=== PATIENT | female | born 1990 | race Hispanic/Latino ===

== ENCOUNTER 2017-12-26 18:12 | Emergency (ER) | payer OTHER, SELFPAY ==
[2017-12-26] MEDS ORDERED: NA CHLORIDE 0.9% 1,000 ML ONE (19:06)
[2017-12-26] MEDS ORDERED: ONDANSETRON 4 MG/2 ML VIAL ONE (19:06)
[2017-12-26 19:09] LABS: Basophils % 0.4 % (0-1.3); Eosinophils % 0.5 % (0-4.4); Hematocrit 33.6 % (36.0-45.0); Lymphocytes % 26.9 % (15.3-44.8); MCH 29.1 pg (27.0-35.0); MCV 85.9 fL (80-100); MPV 8.4 fL (7.6-11.3); Monocytes % 8.9 % (3.3-12.3); RBC Red Blood Cell Count 3.92 M/uL (3.86-4.86)
[2017-12-26 19:22] LABS: Urine Blood 2+ (NEG); Urine Glucose NEGATIVE (NEG); Urine Protein 1+ (NEG); Urine Specific Gravity 1.025 (1.005-1.030)
[2017-12-26 19:28] LABS: ALT/SGPT 17 U/L (12-78); AST/SGOT 13 U/L (15-37); Alkaline Phosphatase 61 U/L (45-117); BUN Blood Urea Nitrogen 12 mg/dL (7-18); Bicarbonate 26 mmol/L (21-32); Bilirubin Total 0.4 mg/dL (0.2-1.0); Glucose Level 84 mg/dL (74-106); Potassium 3.2 mmol/L (3.5-5.1); Protein, Total 7.7 g/dL (6.4-8.2); Sodium Level 142 mmol/L (136-145)
--- NOTE | 2017-12-26 19:46 | ER ---
Nurse's Notes [facility] Name: Joanne Knight Age: 27 yrs Sex: Female : 1990 Arrival Date: 12/26/2017 Time: 18:16 Bed 24 Private MD: None, None Diagnosis: Diarrhea, unspecified;Nausea and vomiting;Viral gastroenteritis Presentation: 12/26 18:19 Presenting complaint: Patient states: N/V/D since today at 0400. Pt c/o lower back pain aa5 since today. Transition of care: patient was not received from another setting of care. Onset of symptoms was December 26, 2017. Risk Assessment: Do you want to hurt yourself or someone else? Patient reports no desire to harm self or others. Initial Sepsis Screen: Does the patient meet any 2 criteria? No. Patient's initial sepsis screen is negative. Does the patient have a suspected source of infection? No. Patient's initial sepsis screen is negative. Care prior to arrival: None. 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 - Social history:: Smoking status: Patient/guardian denies using tobacco. - Ebola Screening: : No symptoms or risks identified at this time. Screenin:37 Abuse screen: Denies threats or abuse. Nutritional screening: No deficits noted. tl3 Tuberculosis screening: No symptoms or risk factors identified. Fall Risk None identified. Assessment: 18:37 General: Appears in no apparent distress. comfortable, well groomed, well developed, tl3 well nourished, Behavior is calm, cooperative, appropriate for age. Pain: Complains of pain in abdomen. Neuro: Level of Consciousness is awake, alert, obeys commands, Oriented to person, place, time, situation, Appropriate for age. Cardiovascular: Heart tones S1 S2 present Patient's skin is warm and dry. Respiratory: Airway is patent Respiratory effort is even, unlabored, Respiratory pattern is regular, symmetrical, Breath sounds are clear bilaterally. GI: Reports diarrhea, nausea. : Urine is clear, Reports vaginal bleeding that is moderate flow, on cycle. EENT: No signs and/or symptoms were reported regarding the EENT system. Derm: No signs and/or symptoms reported regarding the dermatologic system. Musculoskeletal: No signs and/or symptoms reported regarding the musculoskeletal system. 20:31 Reassessment: Patient appears in no apparent distress at this time. No changes from tl3 previously documented assessment. Patient and/or family updated on plan of care and expected duration. Pain level reassessed. Patient is alert, oriented x 3, equal unlabored respirations, skin warm/dry/pink. Vital Signs: 18:21 BP 142 / 99; Pulse 66; Resp 16 S; Temp 98.0(TE); Pulse Ox 100% on R/A; Weight 95.71 kg aa5 (R); Height 5 ft. 4 in. (162.56 cm) (R); Pain 9/10; 20:31 BP 120 / 98; Pulse 66; Resp 18; Pulse Ox 99% ; tl3 18:21 Body Mass Index 36.22 (95.71 kg, 162.56 cm) aa5 ED Course: 18:16 Patient arrived in ED. mr 18:16 None, None is Private Physician. mr 18:20 Triage completed. aa5 18:20 Arm band placed on. aa5 18:33 Ward Brown NP is PHCP. pm1 18:33 Boston Salcido MD is Attending Physician. pm1 18:36 Ronda Sidhu, SANTOS is Primary Nurse. tl3 18:37 Patient has correct armband on for positive identification. Bed in low position. Call tl3 light in reach. Side rails up X 1. Pulse ox on. NIBP on. 18:37 No provider procedures requiring assistance completed. Initial lab(s) drawn, by id, tl3 sent to lab. Urine collected: clean catch specimen, clear. Inserted saline lock: 20 gauge in right forearm, using aseptic technique. Blood collected. 20:31 IV discontinued, intact, bleeding controlled, No redness/swelling at site. Pressure tl3 dressing applied. Administered Medications: 19:09 Drug: NS 0.9% 1000 ml Route: IV; Rate: 1000 ml; Site: right forearm; Delivery: Primary tl3 tubing; 20:34 Follow up: IV Status: Completed infusion; IV Intake: 1000ml tl3 19:09 Drug: Zofran 4 mg Route: IVP; Infused Over: 2 mins; Site: right forearm; tl3 20:34 Follow up: Response: No adverse reaction tl3 20:04 Drug: Phenergan 12.5 mg Route: IVP; Site: right antecubital; mg2 20:33 Follow up: Response: No adverse reaction tl3 20:05 Drug: Potassium Chloride 40 mEq Route: PO; mg2 20:34 Follow up: Response: No adverse reaction tl3 20:05 Drug: TORadol 30 mg Route: IVP; Site: right antecubital; mg2 20:34 Follow up: Response: No adverse reaction tl3 Intake: 20:34 IV: 1000ml; Total: 1000ml. tl3 Outcome: 19:45 Discharge ordered by MD. pm1 20:31 Discharged to home ambulatory. tl3 20:31 Condition: stable 20:31 Discharge instructions given to patient, Instructed on discharge instructions, follow up and referral plans. medication usage, Demonstrated understanding of instructions, follow-up care, medications, Prescriptions given X 3. 20:36 Patient left the ED. tl3 Signatures: Sandra Guerrero Audri, RN RN aa5 Ward Brown, DATA OPERATIONS LEADER DATA OPERATIONS LEADER pm1 Ronda Sidhu RN RN tl3 Jc Blake RN RN mg2
--- NOTE | 2017-12-26 19:46 | EDPHYS ---
Physician Documentation [facility] Name: Joanne Knight Age: 27 yrs Sex: Female : 1990 Arrival Date: 12/26/2017 Time: 18:16 Bed 24 Private MD: None, None ED Physician Boston Salcido HPI: 12/26 19:00 This 27 yrs old Female presents to ER via Ambulatory with complaints of Back pm1 Pain, Vomiting, Diarrhea. 19:00 The patient presents to the emergency department with nausea, vomiting, 4 times since pm1 the onset of symptoms, diarrhea, 4 times since the onset of symptoms. Onset: The symptoms/episode began/occurred today. Possible causes: unknown. The symptoms are aggravated by nothing. The symptoms are alleviated by nothing. Associated signs and symptoms: Pertinent positives: Back pain, Pertinent negatives: abdominal pain, dysuria, fever. The patient has not recently seen a physician. 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 - Social history:: Smoking status: Patient/guardian denies using tobacco. - Ebola Screening: : No symptoms or risks identified at this time. ROS: 19:00 Constitutional: Negative for fever, chills, and weight loss, Eyes: Negative for injury, pm1 pain, redness, and discharge, ENT: Negative for injury, pain, and discharge, Neck: Negative for injury, pain, and swelling, Cardiovascular: Negative for chest pain, palpitations, and edema, Respiratory: Negative for shortness of breath, cough, wheezing, and pleuritic chest pain. 19:00 : Negative for injury, bleeding, discharge, and swelling, MS/Extremity: Negative for injury and deformity, Skin: Negative for injury, rash, and discoloration, Neuro: Negative for headache, weakness, numbness, tingling, and seizure. 19:00 Abdomen/GI: Positive for nausea, vomiting, and diarrhea, Negative for abdominal pain. 19:00 Back: Positive for of the low back area. Exam: 19:00 Constitutional: This is a well developed, well nourished patient who is awake, alert, pm1 and in no acute distress. Head/Face: Normocephalic, atraumatic. Eyes: Pupils equal round and reactive to light, extra-ocular motions intact. Lids and lashes normal. Conjunctiva and sclera are non-icteric and not injected. Cornea within normal limits. Periorbital areas with no swelling, redness, or edema. ENT: Nares patent. No nasal discharge, no septal abnormalities noted. Tympanic membranes are normal and external auditory canals are clear. Oropharynx with no redness, swelling, or masses, exudates, or evidence of obstruction, uvula midline. Mucous membranes moist. Neck: Trachea midline, no thyromegaly or masses palpated, and no cervical lymphadenopathy. Supple, full range of motion without nuchal rigidity, or vertebral point tenderness. No Meningismus. Chest/axilla: Normal chest wall appearance and motion. Nontender with no deformity. No lesions are appreciated. Cardiovascular: Regular rate and rhythm with a normal S1 and S2. No gallops, murmurs, or rubs. Normal PMI, no JVD. No pulse deficits. Respiratory: Lungs have equal breath sounds bilaterally, clear to auscultation and percussion. No rales, rhonchi or wheezes noted. No increased work of breathing, no retractions or nasal flaring. Abdomen/GI: Soft, non-tender, with normal bowel sounds. No distension or tympany. No guarding or rebound. No evidence of tenderness throughout. 19:00 Skin: Warm, dry with normal turgor. Normal color with no rashes, no lesions, and no evidence of cellulitis. MS/ Extremity: Pulses equal, no cyanosis. Neurovascular intact. Full, normal range of motion. 19:00 Back: pain, is absent, ROM is normal, normal spinal alignment noted, CVA tenderness, is absent, muscle spasm, is not present. 19:00 Neuro: Orientation: is normal, Motor: is normal, moves all fours, Gait: is steady, at a normal pace, without difficulty. Vital Signs: 18:21 BP 142 / 99; Pulse 66; Resp 16 S; Temp 98.0(TE); Pulse Ox 100% on R/A; Weight 95.71 kg aa5 (R); Height 5 ft. 4 in. (162.56 cm) (R); Pain 9/10; 20:31 BP 120 / 98; Pulse 66; Resp 18; Pulse Ox 99% ; tl3 18:21 Body Mass Index 36.22 (95.71 kg, 162.56 cm) aa5 MDM: 18:33 Patient medically screened. pm1 19:42 Data reviewed: vital signs. Data interpreted: Pulse oximetry: on room air is 100 %. pm1 Interpretation: normal. Counseling: I had a detailed discussion with the patient and/or guardian regarding: the historical points, exam findings, and any diagnostic results supporting the discharge/admit diagnosis, lab results, the need for outpatient follow up, to return to the emergency department if symptoms worsen or persist or if there are any questions or concerns that arise at home. 12/26 18:38 Order name: CBC with Diff; Complete Time: 19:14 pm1 12/26 18:38 Order name: CMP; Complete Time: 19:36 pm1 12/26 19:01 Order name: Urine Dipstick--Ancillary (enter results); Complete Time: 19:36 2 12/26 19:01 Order name: Urine --Ancillary (enter results); Complete Time: 19:36 2 12/26 18:38 Order name: Urine Test (obtain specimen); Complete Time: 19:00 pm1 12/26 18:38 Order name: IV Saline Lock; Complete Time: 19:00 pm1 12/26 18:38 Order name: Labs collected and sent; Complete Time: 19:00 pm1 12/26 18:38 Order name: Urine Dipstick-Ancillary (obtain specimen); Complete Time: 19:00 pm1 Administered Medications: 19:09 Drug: NS 0.9% 1000 ml Route: IV; Rate: 1000 ml; Site: right forearm; Delivery: Primary tl3 tubing; 20:34 Follow up: IV Status: Completed infusion; IV Intake: 1000ml tl3 19:09 Drug: Zofran 4 mg Route: IVP; Infused Over: 2 mins; Site: right forearm; tl3 20:34 Follow up: Response: No adverse reaction tl3 20:04 Drug: Phenergan 12.5 mg Route: IVP; Site: right antecubital; mg2 20:33 Follow up: Response: No adverse reaction tl3 20:05 Drug: Potassium Chloride 40 mEq Route: PO; mg2 20:34 Follow up: Response: No adverse reaction tl3 20:05 Drug: TORadol 30 mg Route: IVP; Site: right antecubital; mg2 20:34 Follow up: Response: No adverse reaction tl3 Disposition: 12/26/17 19:45 Discharged to Home. Impression: Viral gastroenteritis , Diarrhea, unspecified, Nausea and vomiting. - Condition is Stable. - Discharge Instructions: Food Choices to Help Relieve Diarrhea, Adult, Nausea and Vomiting, Adult, Viral Gastroenteritis, Adult. - Prescriptions for Bentyl 20 mg Oral Tablet - take 1 tablet by ORAL route every 6 hours As needed; 20 tablet. Zofran 4 mg Oral Tablet - take 1 tablet by ORAL route every 12 hours As needed; 20 tablet. promethazine 25 mg Oral Tablet - take 1 tablet by ORAL route every 6 hours As needed; 20 tablet. - Medication Reconciliation Form, Thank You Letter, Antibiotic Education form. - Follow up: Emergency Department; When: As needed; Reason: Worsening of condition. Follow up: Private Physician; When: 2 - 3 days; Reason: Recheck today's complaints, Continuance of care, Re-evaluation by your physician. - Problem is new. - Symptoms have improved. Addendum: 12/29/2017 07:36 Co-signature as Attending Physician, Boston Salcido MD. r n Signatures: Dispatcher [employer] EDBoston Smith MD MD rn Calderon, Audri RN RN aa5 Ward Brown, JACKET PREPARER JACKET PREPARER pm1 Ronda Sidhu RN RN tl3 Jc Blake RN RN mg2 Corrections: (The following items were deleted from the chart) 12/26 19:45 19:45 12/26/2017 19:45 Discharged to Home. Impression: Diarrhea, unspecified; Nausea pm1 and vomiting. Condition is Stable. Forms are Medication Reconciliation Form, Thank You Letter, Antibiotic Education, Prescription Opioid Use. Follow up: Emergency Department; When: As needed; Reason: Worsening of condition. Follow up: Private Physician; When: 2 - 3 days; Reason: Recheck today's complaints, Continuance of care, Re-evaluation by your physician. Problem is new. Symptoms have improved. pm1 20:36 19:45 12/26/2017 19:45 Discharged to Home. Impression: Viral gastroenteritis Diarrhea, tl3 unspecified; Nausea and vomiting. Condition is Stable. Forms are Medication Reconciliation Form, Thank You Letter, Antibiotic Education, Prescription Opioid Use. Follow up: Emergency Department; When: As needed; Reason: Worsening of condition. Follow up: Private Physician; When: 2 - 3 days; Reason: Recheck today's complaints, Continuance of care, Re-evaluation by your physician. Problem is new. Symptoms have improved. pm1
[2017-12-26] MEDS ORDERED: POTASSIUM CL SA 10 MEQ TAB PO ONE (20:01)
[2017-12-26] MEDS ORDERED: PROMETHAZINE 25 MG/ML VIAL ONE (20:01)
[2017-12-26] MEDS ORDERED: KETOROLAC 30 MG/ML INJ ONE (20:02)
[2017-12-26] MEDS ORDERED: NA CHLORIDE 0.9% 100 ML IV ONE (20:02)
[2017-12-26 20:40] VITALS: TEMP 98
[2017-12-26 20:42] VITALS: BP 120/98; O2SAT 99
== END 2017-12-26 20:36 | disposition home or self-care (01) ==
LOC: ER 18:12
DX: A08.4 Viral intestinal infection, unspecified (principal)
CPT/HCPCS: 36415; 80053; 81003; 81025; 85025; 99284; J2405; J2550; J7030

== ENCOUNTER 2018-01-08 16:26 | Emergency (ER) | payer OTHER ==
[2018-01-08] MEDS ORDERED: HYDROCODONE/APAP 10/325 TAB ONE (17:03)
[2018-01-08 17:20] LABS: Urine Blood 1+ (NEG); Urine Glucose NEGATIVE (NEG); Urine Protein NEGATIVE (NEG); Urine Specific Gravity >1.030 (1.005-1.030)
--- NOTE | 2018-01-08 17:20 | RAD REPORT ---
EXAM DESCRIPTION: RAD - Knee Right 3 View - 01/08/2018 5:14 pm CLINICAL HISTORY: Right knee pain status post fall FINDINGS: No fracture or dislocation is seen. A moderate joint effusion is present
--- NOTE | 2018-01-08 18:03 | EDPHYS ---
Physician Documentation [facility] Name: Joanne Knight Age: 27 yrs Sex: Female : 1990 Arrival Date: 01/08/2018 Time: 16:29 Bed 14 Private MD: None, None ED Physician Dick Matthews HPI: 01/08 17:00 This 27 yrs old Female presents to ER via Wheelchair with complaints of Fall pm1 Injury, Knee Injury. 17:00 Details of fall: The patient fell from an upright position, while standing. Onset: The pm1 symptoms/episode began/occurred just prior to arrival. Associated injuries: The patient sustained right knee. Severity of symptoms: in the emergency department the symptoms have improved. Patient slipped in the kitchen, landed on her left side and her right knee cap moved laterally. Patient reduced it and presents to the ER with right knee pain and swelling. No head injury, headache, or neck pain. No LOC. 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 - Social history:: Smoking status: Patient/guardian denies using tobacco. - Ebola Screening: : Patient negative for fever greater than or equal to 101.5 degrees Fahrenheit, and additional compatible Ebola Virus Disease symptoms Patient denies exposure to infectious person Patient denies travel to an Ebola-affected area in the 21 days before illness onset No symptoms or risks identified at this time. ROS: 17:00 Constitutional: Negative for fever, chills, and weight loss, Eyes: Negative for injury, pm1 pain, redness, and discharge, ENT: Negative for injury, pain, and discharge, Neck: Negative for injury, pain, and swelling, Cardiovascular: Negative for chest pain, palpitations, and edema, Respiratory: Negative for shortness of breath, cough, wheezing, and pleuritic chest pain, Abdomen/GI: Negative for abdominal pain, nausea, vomiting, diarrhea, and constipation, Back: Negative for injury and pain, : Negative for injury, bleeding, discharge, and swelling. 17:00 Skin: Negative for injury, rash, and discoloration, Neuro: Negative for headache, weakness, numbness, tingling, and seizure. 17:00 MS/extremity: Positive for pain, of the right knee. Exam: 17:00 Constitutional: This is a well developed, well nourished patient who is awake, alert, pm1 and in no acute distress. Head/Face: Normocephalic, atraumatic. Eyes: Pupils equal round and reactive to light, extra-ocular motions intact. Lids and lashes normal. Conjunctiva and sclera are non-icteric and not injected. Cornea within normal limits. Periorbital areas with no swelling, redness, or edema. ENT: Nares patent. No nasal discharge, no septal abnormalities noted. Tympanic membranes are normal and external auditory canals are clear. Oropharynx with no redness, swelling, or masses, exudates, or evidence of obstruction, uvula midline. Mucous membranes moist. Neck: Trachea midline, no thyromegaly or masses palpated, and no cervical lymphadenopathy. Supple, full range of motion without nuchal rigidity, or vertebral point tenderness. No Meningismus. Chest/axilla: Normal chest wall appearance and motion. Nontender with no deformity. No lesions are appreciated. Cardiovascular: Regular rate and rhythm with a normal S1 and S2. No gallops, murmurs, or rubs. No pulse deficits. Respiratory: Lungs have equal breath sounds bilaterally, clear to auscultation and percussion. No rales, rhonchi or wheezes noted. No increased work of breathing, no retractions or nasal flaring. Abdomen/GI: Soft, non-tender, with normal bowel sounds. No distension or tympany. No guarding or rebound. No evidence of tenderness throughout. Back: No spinal tenderness. No costovertebral tenderness. Full range of motion. Skin: Warm, dry with normal turgor. Normal color with no rashes, no lesions, and no evidence of cellulitis. 17:00 Musculoskeletal/extremity: Extremities: grossly normal except: noted in the right knee: pain, swelling, tenderness. 17:00 Neuro: Orientation: is normal, Motor: moves all fours. Vital Signs: 16:48 BP 136 / 101; Pulse 71; Resp 16; Temp 99.1(O); Pulse Ox 99% on R/A; Pain 9/10; em 18:17 BP 148 / 91; Pulse 67; Resp 18; Pulse Ox 99% on R/A; Pain 8/10; em MDM: 16:43 Patient medically screened. pm1 17:56 Data reviewed: vital signs. Data interpreted: Pulse oximetry: on room air is 99 %. pm1 Interpretation: normal. Counseling: I had a detailed discussion with the patient and/or guardian regarding: the historical points, exam findings, and any diagnostic results supporting the discharge/admit diagnosis, radiology results, the need for outpatient follow up, for definitive care, a orthopedic surgeon, to return to the emergency department if symptoms worsen or persist or if there are any questions or concerns that arise at home. 01/08 17:18 Order name: Urine Dipstick--Ancillary (enter results); Complete Time: 17:22 ag 01/08 17:18 Order name: Urine --Ancillary (enter results); Complete Time: 17:22 ag 01/08 16:48 Order name: Knee Right 3 View XRAY; Complete Time: 17:22 pm1 01/08 16:48 Order name: Knee Immobilizer; Complete Time: 17:49 pm1 01/08 16:48 Order name: Crutches; Complete Time: 17:49 pm1 01/08 16:48 Order name: Urine Dipstick-Ancillary (obtain specimen); Complete Time: 17:13 pm1 01/08 16:48 Order name: Urine Test (obtain specimen); Complete Time: 17:13 pm1 Administered Medications: 17:16 Drug: HYDROcodone-acetaminophen 10 mg-325 mg 1 tabs Route: PO; em 18:22 Follow up: Response: No adverse reaction; Pain is unchanged, physician notified em Disposition: 18:57 Co-signature as Attending Physician, Dick Matthews MD I agree with the assessment and kdr plan of care. Disposition: 01/08/18 18:02 Discharged to Home. Impression: Pain in right knee, Other subluxation and dislocation of patella - reduced by patient prior to arrival. - Condition is Stable. - Discharge Instructions: Crutch Use, Knee Immobilizer, Knee Sprain, Knee Pain. - Prescriptions for Tylenol- Codeine #3 300-30 mg Oral Tablet - take 2 tablets by ORAL route every 6 hours As needed; 20 tablet. - Work release form, Medication Reconciliation Form, Thank You Letter form. - Follow up: Emergency Department; When: As needed; Reason: Worsening of condition. Follow up: Kory De La Fuente MD; When: 2 - 3 days; Reason: Recheck today's complaints, Continuance of care, Re-evaluation by your physician. - Problem is new. - Symptoms have improved. Signatures: Dispatcher [employer] EDMS Dick Matthews MD MD [facility] Brandt Quevedo, LEAD SOFTWARE DEVELOPMENT ENGINEER LEAD SOFTWARE DEVELOPMENT ENGINEER em Ward Brown NP CASTING MACHINE SET UP OPERATOR pm1 Corrections: (The following items were deleted from the chart) 18:29 18:02 01/08/2018 18:02 Discharged to Home. Impression: Pain in right knee; Other em subluxation and dislocation of patella - reduced by patient prior to arrival. Condition is Stable. Forms are Medication Reconciliation Form, Thank You Letter, Antibiotic Education, Prescription Opioid Use. Follow up: Emergency Department; When: As needed; Reason: Worsening of condition. Follow up: Kory De La Fuente; When: 2 - 3 days; Reason: Recheck today's complaints, Continuance of care, Re-evaluation by your physician. Problem is new. Symptoms have improved. pm1
--- NOTE | 2018-01-08 18:03 | ER ---
Nurse's Notes [facility] Name: Joanne Knight Age: 27 yrs Sex: Female : 1990 Arrival Date: 01/08/2018 Time: 16:29 Bed 14 Private MD: None, None Diagnosis: Pain in right knee;Other subluxation and dislocation of patella-reduced by patient prior to arrival Presentation: 01/08 16:43 Presenting complaint: Patient states: slipped around 1330, felt pop and noticed knee em cap to the outside and pushed it back, has not taken anything for pain. Transition of care: patient was not received from another setting of care. Onset of symptoms was January 08, 2018. Risk Assessment: Do you want to hurt yourself or someone else? Patient reports no desire to harm self or others. Initial Sepsis Screen: Does the patient meet any 2 criteria? No. Patient's initial sepsis screen is negative. Does the patient have a suspected source of infection? No. Patient's initial sepsis screen is negative. Care prior to arrival: None. 16:43 Method Of Arrival: Wheelchair em 17:20 Acuity: MATT 4 iw Triage Assessment: 16:46 General: Appears in no apparent distress. uncomfortable, Behavior is calm, cooperative. em Pain: Complains of pain in right knee Pain currently is 9 out of 10 on a pain scale. 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 - Social history:: Smoking status: Patient/guardian denies using tobacco. - Ebola Screening: : Patient negative for fever greater than or equal to 101.5 degrees Fahrenheit, and additional compatible Ebola Virus Disease symptoms Patient denies exposure to infectious person Patient denies travel to an Ebola-affected area in the 21 days before illness onset No symptoms or risks identified at this time. Screenin:47 Abuse screen: Denies threats or abuse. Nutritional screening: No deficits noted. em Tuberculosis screening: No symptoms or risk factors identified. Fall Risk None identified. Assessment: 16:51 General: Appears in no apparent distress. uncomfortable, Behavior is calm, cooperative, em Reports slipped and dislocated knee cap and put it back in place. Pain: Complains of pain in right knee Pain currently is 9 out of 10 on a pain scale. Neuro: Level of Consciousness is awake, alert, obeys commands, Oriented to person, place, time, situation. Cardiovascular: Capillary refill < 3 seconds Patient's skin is warm and dry. Respiratory: Airway is patent Respiratory effort is even, unlabored, Respiratory pattern is regular, symmetrical. GI: Abdomen is round. : No signs and/or symptoms were reported regarding the genitourinary system. EENT: No signs and/or symptoms were reported regarding the EENT system. Derm: Skin is intact, Skin is pink, warm \T\ dry. Musculoskeletal: Circulation, motion, and sensation intact. Capillary refill < 3 seconds, Range of motion: limited in right knee Swelling absent. 17:49 Reassessment: Patient appears in no apparent distress at this time. Patient and/or em family updated on plan of care and expected duration. Pain level reassessed. Patient is alert, oriented x 3, equal unlabored respirations, skin warm/dry/pink. 18:28 Reassessment: Patient appears in no apparent distress at this time. Patient and/or em family updated on plan of care and expected duration. Pain level reassessed. Patient is alert, oriented x 3, equal unlabored respirations, skin warm/dry/pink. Vital Signs: 16:48 BP 136 / 101; Pulse 71; Resp 16; Temp 99.1(O); Pulse Ox 99% on R/A; Pain 9/10; em 18:17 BP 148 / 91; Pulse 67; Resp 18; Pulse Ox 99% on R/A; Pain 8/10; em ED Course: 16:29 Patient arrived in ED. mr 16:29 None, None is Private Physician. mr 16:42 Ward Brown NP is PHCP. pm1 16:42 Dick Matthews MD is Attending Physician. pm1 16:42 Brandt Quevedo LVN is Primary Nurse. em 16:47 Patient has correct armband on for positive identification. Bed in low position. Call em light in reach. 16:47 No provider procedures requiring assistance completed. Patient did not have IV access em during this emergency room visit. 16:51 Arm band placed on. em 17:13 Knee Right 3 View XRAY In Process Unspecified. EDMS 17:20 Triage completed. iw 17:57 Kory De La Fuente MD is Referral Physician. pm1 Administered Medications: 17:16 Drug: HYDROcodone-acetaminophen 10 mg-325 mg 1 tabs Route: PO; em 18:22 Follow up: Response: No adverse reaction; Pain is unchanged, physician notified em Outcome: 18:02 Discharge ordered by . pm1 18:28 Discharged to home with crutches. em 18:28 Condition: good 18:28 Discharge instructions given to patient, Instructed on discharge instructions, follow up and referral plans. no drinking with medication, no driving heavy equipment, medication usage, Demonstrated understanding of instructions, follow-up care, medications, crutch walking, Prescriptions given X 1. 18:29 Patient left the ED. em Signatures: Dispatcher [employer] EDMS Sandra GuerreroozBrandt, EMPLOYMENT CONSULTANT EMPLOYMENT CONSULTANT em Merna Carrillo, SANTOS RN iw Ward Brown, FRANCOIS PHLEBOTOMIST pm1
[2018-01-08 18:33] VITALS: TEMP 99.1; O2SAT 99
[2018-01-08 18:34] VITALS: BP 148/91
== END 2018-01-08 18:29 | disposition home or self-care (01) ==
LOC: ER 16:26
DX: S83.091A Other subluxation of right patella, initial encounter (principal); W01.0XXA Fall on same level from slipping, tripping and stumbling without subsequent striking against object, initial encounter; Y93.89 Activity, other specified; Y92.000 Kitchen of unspecified non-institutional (private) residence as the place of occurrence of the external cause
CPT/HCPCS: 81003; 81025; 99284

== ENCOUNTER 2018-09-22 17:11 | Emergency (ER) | payer OTHER, SELFPAY ==
[2018-09-22] MEDS ORDERED: predniSONE 20 MG TAB ONE (17:54)
[2018-09-22] MEDS ORDERED: FAMOTIDINE 20 MG TAB ONE (17:54)
[2018-09-22 19:01] LABS: Urine Blood 1+ (NEG); Urine Glucose NEGATIVE (NEG); Urine Protein NEGATIVE (NEG); Urine Specific Gravity 1.025 (1.005-1.030)
--- NOTE | 2018-09-22 19:35 | EDPHYS ---
Physician Documentation [facility] Name: Joanne Knight Age: 28 yrs Sex: Female : 1990 Arrival Date: 09/22/2018 Time: 17:15 Bed 24 Private MD: ED Physician Boston Salcido HPI: 09/22 17:39 This 28 yrs old Female presents to ER via Ambulatory with complaints of cp Allergic Reaction. 17:39 The patient presents with localized swelling, rash, that is diffuse. cp 17:39 Onset: The symptoms/episode began/occurred 1 hour(s) ago. cp 17:39 Associated signs and symptoms: Pertinent positives: itchy throat, Pertinent negatives: cp dysphagia, fever. 17:39 Possible causes: dust. At home the patient or guardian has treated the symptoms with cp Benadryl. Severity of symptoms: in the emergency department the symptoms are unchanged despite home interventions. 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 - Social history:: Smoking status: unknown. - Ebola Screening: : No symptoms or risks identified at this time. ROS: 17:43 Constitutional: Negative for body aches, chills, fever, poor PO intake. cp 17:43 Eyes: Negative for injury, pain, redness, and discharge. cp 17:43 ENT: Negative for drainage from ear(s), ear pain, sore throat, difficulty swallowing, difficulty handling secretions. 17:43 Cardiovascular: Negative for chest pain, palpitations. 17:43 Respiratory: Negative for shortness of breath, wheezing. 17:43 Abdomen/GI: Negative for abdominal pain, nausea, vomiting, and diarrhea. 17:43 Skin: Positive for rash, diffusely. 17:43 Neuro: Negative for altered mental status, headache. 17:43 All other systems are negative. Exam: 17:50 Constitutional: The patient appears in no acute distress, alert, awake, non-toxic, well cp developed, well nourished. 17:50 Head/face: Noted is swelling, that is mild, of the left infraorbital area. cp 17:50 Eyes: Pupils: equal, round, and reactive to light and accomodation, Extraocular movements: intact throughout, Conjunctiva: normal, no exudate, no injection, Sclera: no appreciated abnormality, Lids and lashes: appear normal, bilaterally. 17:50 ENT: External ear(s): are unremarkable, Ear canal(s): are normal, clear, TM's: bulging, is not appreciated, bilaterally, dullness, bilaterally, erythema, is not appreciated, bilaterally, Nose: is normal, Mouth: Lips: moist, Oral mucosa: pink and intact, moist, Posterior pharynx: Airway: no evidence of obstruction, patent, Tonsils: are normal in appearance, Uvula: midline, swelling, is not appreciated, erythema, is not appreciated, exudate, is not appreciated. 17:50 Neck: ROM/movement: is normal, is supple, without pain, no range of motions limitations, no meningismus, no nuchal rigidity. 17:50 Chest/axilla: Palpation: is normal, no crepitus, no tenderness. 17:50 Cardiovascular: Rate: normal, Rhythm: regular. 17:50 Respiratory: the patient does not display signs of respiratory distress, Respirations: normal, no use of accessory muscles, no retractions, no splinting, no tachypnea, labored breathing, is not present, Breath sounds: are clear throughout, no decreased breath sounds, no stridor, no wheezing. 17:50 Abdomen/GI: Inspection: abdomen appears normal, Palpation: abdomen is soft and non-tender, in all quadrants, rebound tenderness, is not appreciated, involuntary guarding, is not appreciated. 17:50 Back: pain, is absent, ROM is normal. 17:50 Skin: rash can be described as hives, and is diffusely located. cp Vital Signs: 17:17 BP 133 / 91; Pulse 55; Resp 18; Temp 98; Pulse Ox 100% ; Weight 99.79 kg; Height 5 ft. sv 4 in. (162.56 cm); Pain 0/10; 18:43 BP 119 / 89; Pulse 65; Resp 18; Pulse Ox 100% on R/A; Pain 0/10; mg2 19:40 BP 115 / 69; Pulse 60; Resp 18; Pulse Ox 100% on R/A; Pain 0/10; mg2 17:17 Body Mass Index 37.76 (99.79 kg, 162.56 cm) sv MDM: 17:27 Patient medically screened. cp 17:30 Differential diagnosis: anaphylaxis, angioedema, urticaria. cp 19:30 Data reviewed: vital signs, nurses notes, and as a result, I will discharge patient. cp 19:30 Counseling: I had a detailed discussion with the patient and/or guardian regarding: the cp historical points, exam findings, and any diagnostic results supporting the discharge/admit diagnosis, to return to the emergency department if symptoms worsen or persist or if there are any questions or concerns that arise at home. Response to treatment: the patient's symptoms have markedly improved after treatment, and as a result, I will discharge patient. 09/22 17:41 Order name: Urine Dipstick--Ancillary (enter results) bd 09/22 17:41 Order name: Urine --Ancillary (enter results) bd 09/22 17:18 Order name: Urine Dipstick-Ancillary (obtain specimen); Complete Time: 17:36 cp 09/22 17:18 Order name: Urine Test (obtain specimen); Complete Time: 17:36 cp Administered Medications: 17:44 Drug: Pepcid 20 mg Route: PO; mg2 19:35 Follow up: Response: No adverse reaction; Marked relief of symptoms mg2 17:44 Drug: predniSONE 60 mg Route: PO; mg2 19:35 Follow up: Response: No adverse reaction; Marked relief of symptoms mg2 Disposition: 19:45 Chart complete. cp Disposition: 09/22/18 19:34 Discharged to Home. Impression: Allergy, unspecified. - Condition is Stable. - Discharge Instructions: Allergies, Adult. - Prescriptions for Pepcid 20 mg Oral Tablet - take 1 tablet by ORAL route every 12 hours for 5 days; 10 tablet. Prednisone 20 mg Oral Tablet - take 2 tablet by ORAL route once daily for 5 days; 10 tablet. - Medication Reconciliation Form, Thank You Letter, Antibiotic Education, Prescription Opioid Use form. - Follow up: Private Physician; When: 2 - 3 days; Reason: Recheck today's complaints. - Problem is new. - Symptoms have improved. Signatures: Dispatcher [employer] Rosalinda Navarro RN RN sv Terry Gallo PA PA cp Jc Blake RN RN mg2 Corrections: (The following items were deleted from the chart) 19:40 19:34 09/22/2018 19:34 Discharged to Home. Impression: Allergy, unspecified. Condition mg2 is Stable. Forms are Medication Reconciliation Form, Thank You Letter, Antibiotic Education, Prescription Opioid Use. Follow up: Private Physician; When: 2 - 3 days; Reason: Recheck today's complaints. Problem is new. Symptoms have improved. cp 09/23 05:35 09/22 17:50 Skin: rash can be described as cp cp
--- NOTE | 2018-09-22 19:35 | ER ---
Nurse's Notes [facility] Name: Joanne Knight Age: 28 yrs Sex: Female : 1990 Arrival Date: 09/22/2018 Time: 17:15 Bed 24 Private MD: Diagnosis: Allergy, unspecified Presentation: 09/22 17:15 Presenting complaint: Patient states: hives, left eye swelling, itchy throat started sv about an hr ago. Transition of care: patient was not received from another setting of care. Onset: The symptoms/episode began/occurred acutely, 1 hour(s) ago. Anaphylaxis evaluation, no signs or symptoms of anaphylaxis were noted. Onset of symptoms was September 22, 2018. Care prior to arrival: Medication(s) given: benadryl 2 tabs taken about 45 mins ago. 17:15 Method Of Arrival: Ambulatory sv 17:15 Acuity: MATT 4 sv 17:49 Risk Assessment: Do you want to hurt yourself or someone else? Patient reports no mg2 desire to harm self or others. Initial Sepsis Screen: Does the patient meet any 2 criteria? No. Patient's initial sepsis screen is negative. Does the patient have a suspected source of infection? No. Patient's initial sepsis screen is negative. 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 - Social history:: Smoking status: unknown. - Ebola Screening: : No symptoms or risks identified at this time. Screenin:49 Abuse screen: Denies threats or abuse. Denies injuries from another. Nutritional mg2 screening: No deficits noted. Tuberculosis screening: No symptoms or risk factors identified. Fall Risk None identified. Assessment: 17:48 General: Appears in no apparent distress. comfortable, Behavior is calm, cooperative. mg2 Pain: Denies pain. Neuro: Level of Consciousness is awake, alert, obeys commands, Oriented to person, place, time, situation. Cardiovascular: Capillary refill < 3 seconds. Respiratory: Airway is patent Respiratory effort is even, unlabored, Breath sounds are clear bilaterally. in mediastinum, right upper lobe, left upper lobe, right middle lobe, left lower lobe and right lower lobe. GI: No signs and/or symptoms were reported involving the gastrointestinal system. : No signs and/or symptoms were reported regarding the genitourinary system. EENT: No signs and/or symptoms were reported regarding the EENT system. Derm: Skin is intact, is healthy with good turgor, Skin is pink, warm \T\ dry. normal, Rash noted that is itchy, red, urticaria, on face, right arm and left arm. Musculoskeletal: Circulation, motion, and sensation intact. Capillary refill < 3 seconds. 19:40 Reassessment: Patient states feeling better. Patient states symptoms have improved. mg2 Vital Signs: 17:17 BP 133 / 91; Pulse 55; Resp 18; Temp 98; Pulse Ox 100% ; Weight 99.79 kg; Height 5 ft. sv 4 in. (162.56 cm); Pain 0/10; 18:43 BP 119 / 89; Pulse 65; Resp 18; Pulse Ox 100% on R/A; Pain 0/10; mg2 19:40 BP 115 / 69; Pulse 60; Resp 18; Pulse Ox 100% on R/A; Pain 0/10; mg2 17:17 Body Mass Index 37.76 (99.79 kg, 162.56 cm) sv ED Course: 17:15 Patient arrived in ED. sv 17:16 Triage completed. sv 17:17 Arm band placed on. sv 17:18 Terry Gallo PA is PHCP. cp 17:18 Boston Salcido MD is Attending Physician. cp 17:21 Jc Blake, SANTOS is Primary Nurse. mg2 17:35 Urine collected: clean catch specimen, clear, estefani colored, Amount Voided: 80mL. jp3 17:50 Patient has correct armband on for positive identification. mg2 17:50 No provider procedures requiring assistance completed. Patient did not have IV access mg2 during this emergency room visit. 18:00 Urine --Ancillary (enter results) Sent. jp3 18:00 Urine Dipstick--Ancillary (enter results) Sent. jp3 Administered Medications: 17:44 Drug: Pepcid 20 mg Route: PO; mg2 19:35 Follow up: Response: No adverse reaction; Marked relief of symptoms mg2 17:44 Drug: predniSONE 60 mg Route: PO; mg2 19:35 Follow up: Response: No adverse reaction; Marked relief of symptoms mg2 Outcome: 19:34 Discharge ordered by . cp 19:40 Discharged to home ambulatory. mg2 19:40 Condition: stable 19:40 Discharge instructions given to patient, Instructed on discharge instructions, follow up and referral plans. medication usage, Demonstrated understanding of instructions, follow-up care, medications, Prescriptions given X 2. 19:40 Patient left the ED. mg2 Signatures: Rosalinda Conklin RN RN sv Terry Gallo PA PA cp [place], Michele, RN RN mg2 Elieser Aggarwal jp3
[2018-09-22 20:04] VITALS: TEMP 98; O2SAT 100
[2018-09-22 20:07] VITALS: BP 115/69
== END 2018-09-22 19:40 | disposition home or self-care (01) ==
LOC: ER 17:11
DX: T78.40XA Allergy, unspecified, initial encounter (principal); X58.XXXA Exposure to other specified factors, initial encounter
CPT/HCPCS: 81003; 81025; 99283; J7512

== ENCOUNTER 2019-02-18 08:03 | Emergency (ER) | payer SELFPAY ==
[2019-02-18 08:49] LABS: Absolute Lymphocytes (CBC) 1.9 K/uL (0.7-4.9); Basophils % 0.6 % (0-1.3); Hematocrit 32.7 % (36.0-45.0); Lymphocytes % 27.5 % (15.3-44.8); MPV 8.4 fL (7.6-11.3); RBC Red Blood Cell Count 3.87 M/uL (3.86-4.86)
[2019-02-18 09:09] LABS: BUN Blood Urea Nitrogen 14 mg/dL (7-18); Bicarbonate 26 mmol/L (21-32); Glucose Level 88 mg/dL (74-106); Lipase 113 U/L (73-393); NT PRO-BNP 11 pg/mL (<125); Potassium 3.9 mmol/L (3.5-5.1); Sodium Level 140 mmol/L (136-145); Troponin (Emerg Dept Use Only) < 0.02 ng/mL (0.0-0.045)
--- NOTE | 2019-02-18 09:13 | RAD REPORT ---
EXAM DESCRIPTION: [facility] Single View02/18/2019 9:05 am CLINICAL HISTORY: Chest pain COMPARISON: 2014 FINDINGS: The lungs appear clear of acute infiltrate. The heart is borderline enlarged IMPRESSION: No acute abnormalities displayed
[2019-02-18 10:48] LABS: Urine Blood TRACE (NEG); Urine Glucose NEGATIVE (NEG); Urine Protein NEGATIVE (NEG); Urine Specific Gravity 1.025 (1.005-1.030); Urine pH 6.5 (5.0-7.0)
--- NOTE | 2019-02-18 11:02 | RAD REPORT ---
EXAM DESCRIPTION: CT - Chest For Pe Angio - 02/18/2019 10:53 am CLINICAL HISTORY: Chest pain. CHEST PAIN COMPARISON: CTANGIO CHEST FOR PE dated 04/02/2014 TECHNIQUE: CT angiogram of the pulmonary arteries was performed with MIP. All CT scans are performed using dose optimization technique as appropriate and may include automated exposure control or mA/KV adjustment according to patient size. FINDINGS: No evidence of pulmonary thromboembolism. No acute aortic finding demonstrated. Mild linear subsegmental atelectasis is present in both posterior lung bases. No focal consolidation or mass identified. No significant pericardial or pleural fluid. No concerning bony finding. IMPRESSION: No evidence of pulmonary thromboembolism. Mild subsegmental atelectasis in both lung bases posteriorly.
--- NOTE | 2019-02-18 11:31 | EDPHYS ---
Physician Documentation [facility] Name: Joanne Knight Age: 28 yrs Sex: Female : 1990 Arrival Date: 02/18/2019 Time: 08:05 Bed 17 Private MD: ED Physician Boston Salcido HPI: 02/18 08:27 This 28 yrs old Female presents to ER via Ambulatory with complaints of Chest rn Pressure, Back Pain. 08:27 The patient or guardian reports chest pain that is located primarily in the substernal rn area. The pain radiates to. 08:27 The pain radiates to Associated signs and symptoms: Pertinent positives: None. rn Pertinent negatives: abdominal pain, cough, diaphoresis, dizziness, headache, lower extremity pain, lower extremity swelling, lightheadedness, nausea, near syncope, palpitations, recent travel, shortness of breath, syncope, vomiting. The chest pain is described as sharp. The chest pain is described as a heaviness. Duration: The patient or guardian reports multiple episodes, that are intermittent. Modifying factors: The symptoms are alleviated by nothing. the symptoms are aggravated by deep breath, movement, palpation of area. Severity of pain: At its worst the pain was moderate in the emergency department the pain is unchanged. The patient has experienced a previous episode. Reports similar symptoms once and told had bronchopneumonia, but doesn't feel sick, afebrile, no trauma, no hx of dvt/pe/recent surgery. . 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 - Family history:: not pertinent. - Hospitalizations: : No recent hospitalization is reported. ROS: 08:27 Constitutional: Negative for fever, chills, and weight loss, Eyes: Negative for injury, rn pain, redness, and discharge, Neck: Negative for injury, pain, and swelling, Cardiovascular: Negative for palpitations, and edema, Respiratory: Negative for cough, wheezing Abdomen/GI: Negative for abdominal pain, nausea, vomiting, diarrhea, and constipation, MS/Extremity: Negative for injury and deformity, Skin: Negative for injury, rash, and discoloration, Neuro: Negative for headache, weakness, numbness, tingling, and seizure. Exam: 08:27 Constitutional: This is a well developed, well nourished patient who is awake, alert, rn and in no acute distress. Head/Face: Normocephalic, atraumatic. Eyes: Pupils equal round and reactive to light, extra-ocular motions intact. Lids and lashes normal. Conjunctiva and sclera are non-icteric and not injected. Cornea within normal limits. Periorbital areas with no swelling, redness, or edema. ENT: MMM Cardiovascular: Regular rate and rhythm with a normal S1 and S2. No gallops, murmurs, or rubs. No pulse deficits. Respiratory: Lungs have equal breath sounds bilaterally, clear to auscultation. No increased work of breathing, no retractions or nasal flaring. Abdomen/GI: Soft, non-tender MS/ Extremity: Pulses equal, no cyanosis. Neurovascular intact. Full, normal range of motion. Equal circumference. Neuro: Awake and alert, GCS 15, oriented to person, place, time, and situation. 08:33 ECG was reviewed by the Attending Physician. rn Vital Signs: 08:18 BP 128 / 78; Pulse 62; Resp 18 S; Temp 97.3(TE); Pulse Ox 100% on R/A; Weight 97.52 kg; aa5 Height 5 ft. 4 in. (162.56 cm) (R); Pain 7/10; 09:28 BP 108 / 67; Pulse 58; Resp 17; Temp 97.7(TE); Pulse Ox 100% ; mh5 11:03 BP 118 / 69; Pulse 58; Resp 66; Pulse Ox 99% on R/A; sg 08:18 Body Mass Index 36.90 (97.52 kg, 162.56 cm) aa5 MDM: 08:15 Patient medically screened. rn 11:29 Differential diagnosis: acute pericarditis, anxiety, chest wall pain, costochondritis, rn esophagitis, gastritis, gastroesophageal reflux disease (GERD), pericarditis, pleurisy, pneumonia, pneumothorax, pulmonary embolus. Data reviewed: vital signs, nurses notes, lab test result(s), EKG, radiologic studies, CT scan, plain films, and as a result, I will discharge patient. Counseling: I had a detailed discussion with the patient and/or guardian regarding: the historical points, exam findings, and any diagnostic results supporting the discharge/admit diagnosis, lab results, radiology results, the need for outpatient follow up, to return to the emergency department if symptoms worsen or persist or if there are any questions or concerns that arise at home. Response to treatment: the patient's symptoms have mildly improved after treatment, and as a result, I will discharge patient. Special discussion: Based on the patient's history, exam, and Dx evaluation, there is no indication for emergent intervention or inpatient Tx. It is understood by the patient/guardian that if the Sx's persist or worsen they need to return immediately for re-evaluation. I discussed with the patient/guardian in detail that at this point there is no indication for admission to the hospital. It is understood, however, that if the symptoms persist or worsen the patient needs to return immediately for re-evaluation. ED course: Has had gallbladder removed, no other acute finding other than elevated d-dimer, but neg CT chest. Will dc home with return precautions.. 02/18 08:21 Order name: Basic Metabolic Panel; Complete Time: 09:17 02/18 08:21 Order name: CBC with Diff; Complete Time: 09:02/18 08:21 Order name: NT PRO-BNP; Complete Time: 09:02/18 08:21 Order name: Troponin (emerg Dept Use Only); Complete Time: 09:02/18 08:21 Order name: D-Dimer; Complete Time: 09:02/18 08:21 Order name: Lipase; Complete Time: 09:02/18 08:21 Order name: XRAY Chest (1 view); Complete Time: 10:24 02/18 08:21 Order name: EKG; Complete Time: 08:23 02/18 08:21 Order name: Cardiac monitoring; Complete Time: 08:33 rn 02/18 09:18 Order name: CT Chest For PE Angio; Complete Time: 11:28 rn 02/18 10:39 Order name: Urine Dipstick--Ancillary (enter results) bd 02/18 10:39 Order name: Urine --Ancillary (enter results) bd 02/18 10:50 Order name: Urine --Ancillary EDMS 02/18 10:50 Order name: Urine Dipstick-Ancillary [facility] 02/18 08:21 Order name: EKG - Nurse/Tech; Complete Time: 08:24 02/18 08:21 Order name: IV Saline Lock; Complete Time: 08:33 02/18 08:21 Order name: Labs collected and sent; Complete Time: 08:33 02/18 08:21 Order name: O2 Per Protocol; Complete Time: 09:00 02/18 08:21 Order name: O2 Sat Monitoring; Complete Time: 09: 02/18 10:27 Order name: Urine Test (obtain specimen); Complete Time: 10:51 sg EC: Rate is 62 beats/min. Rhythm is regular. QRS [place] is Normal. [place] interval is normal. QRS rn interval is normal. QT interval is normal. No Q waves. T waves are Normal. No ST changes noted. Clinical impression: Normal ECG. Interpreted by me. Reviewed by me. Administered Medications: No medications were administered Disposition: 02/18/19 11:30 Discharged to Home. Impression: Chest pain, unspecified. - Condition is Stable. - Discharge Instructions: Atelectasis, Adult, Nonspecific Chest Pain. - Work release form, Medication Reconciliation Form, Thank You Letter, Antibiotic Education, Prescription Opioid Use form. - Follow up: Private Physician; When: As needed; Reason: Recheck today's complaints, Re-evaluation by your physician. - Problem is new. - Symptoms have improved. Signatures: Dispatcher [employer] EDNM Joshua Johnson RN RN sg Boston Salcido MD MD rn Calderon, Audri RN RN aa5 Corrections: (The following items were deleted from the chart) 08:29 08:27 The pain does not radiate. rn rn 08:30 08:27 Constitutional: Negative for fever, chills, and weight loss, Eyes: Negative for rn injury, pain, redness, and discharge, Neck: Negative for injury, pain, and swelling, Cardiovascular: Negative for palpitations, and edema, Respiratory: Negative for cough, wheezing, and pleuritic chest pain, Abdomen/GI: Negative for abdominal pain, nausea, vomiting, diarrhea, and constipation, MS/Extremity: Negative for injury and deformity, Skin: Negative for injury, rash, and discoloration, Neuro: Negative for headache, weakness, numbness, tingling, and seizure, rn 11:57 11:30 02/18/2019 11:30 Discharged to Home. Impression: Chest pain, unspecified. sg Condition is Stable. Forms are Medication Reconciliation Form, Thank You Letter, Antibiotic Education, Prescription Opioid Use. Follow up: Private Physician; When: As needed; Reason: Recheck today's complaints, Re-evaluation by your physician. Problem is new. Symptoms have improved. rn
--- NOTE | 2019-02-18 11:31 | ER ---
Nurse's Notes [facility] Name: Joanne Knight Age: 28 yrs Sex: Female : 1990 Arrival Date: 02/18/2019 Time: 08:05 Bed 17 Private MD: Diagnosis: Chest pain, unspecified Presentation: 02/18 08:15 Presenting complaint: Patient states: pain to left side of chest radiating to left aa5 shoulder, and left scapular area that began yesterday. Pt denies cough. 08:15 Acuity: MATT 3 aa5 08:19 Transition of care: patient was not received from another setting of care. Onset of aa5 symptoms was February 2019. Risk Assessment: Do you want to hurt yourself or someone else? Patient reports no desire to harm self or others. Initial Sepsis Screen: Does the patient meet any 2 criteria? No. Patient's initial sepsis screen is negative. Does the patient have a suspected source of infection? No. Patient's initial sepsis screen is negative. Care prior to arrival: None. 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 - Family history:: not pertinent. - Hospitalizations: : No recent hospitalization is reported. Screenin:30 Abuse screen: Denies threats or abuse. Denies injuries from another. Nutritional sg screening: No deficits noted. Tuberculosis screening: No symptoms or risk factors identified. Never had TB. Fall Risk None identified. Assessment: 08:30 General: Appears in no apparent distress. well groomed, well developed, well nourished, sg Behavior is calm, cooperative, appropriate for age. Pain: Complains of pain in left lateral posterior chest Quality of pain is described as aching. Neuro: Level of Consciousness is awake, alert, obeys commands, Oriented to person, place, time, Moves all extremities. Gait is steady, Speech is normal, Facial symmetry appears normal. Cardiovascular: Heart tones S1 S2 present Chest pain is denied. Respiratory: Airway is patent Respiratory effort is even, unlabored, Respiratory pattern is regular, symmetrical. GI: Abdomen is round non-distended, Reports normal bowel habits, tolerance of fluids, tolerance of food. : No signs and/or symptoms were reported regarding the genitourinary system. EENT: No signs and/or symptoms were reported regarding the EENT system. Derm: Skin is pink, warm \T\ dry. Musculoskeletal: Circulation, motion, and sensation intact. Range of motion: intact in all extremities, Swelling absent. 10:51 Reassessment: Patient appears in no apparent distress at this time. pt off unit in radiology at this time, will continue to monitor. Vital Signs: 08:18 BP 128 / 78; Pulse 62; Resp 18 S; Temp 97.3(TE); Pulse Ox 100% on R/A; Weight 97.52 kg; aa5 Height 5 ft. 4 in. (162.56 cm) (R); Pain 7/10; 09:28 BP 108 / 67; Pulse 58; Resp 17; Temp 97.7(TE); Pulse Ox 100% ; mh5 11:03 BP 118 / 69; Pulse 58; Resp 66; Pulse Ox 99% on R/A; sg 08:18 Body Mass Index 36.90 (97.52 kg, 162.56 cm) aa5 ED Course: 08:05 Patient arrived in ED. rg4 08:14 Arm band placed on Patient placed in an exam room, on a stretcher. aa5 08:15 Boston Salcido MD is Attending Physician. rn 08:22 Triage completed. aa5 08:23 Joshua Johnson, RN is Primary Nurse. 08:23 EKG done, by electrical tech. reviewed by Boston Salcido MD. at1 08:32 Initial lab(s) drawn, by la, sent to lab. Inserted saline lock: 20 gauge in right mh5 antecubital area, using aseptic technique. 08:32 Lipase Sent. mh5 08:32 D-Dimer Sent. 5 08:32 Basic Metabolic Panel Sent. 5 08:32 CBC with Diff Sent. 5 08:33 Patient has correct armband on for positive identification. Placed in gown. Bed in low mh5 position. Call light in reach. Side rails up X 1. Warm blanket given. 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 Pulse ox on. NIBP on. 08:33 NT PRO-BNP Sent. mh5 08:33 Troponin (emerg Dept Use Only) Sent. mh5 09:05 X-ray completed. Portable x-ray completed in exam room. jr1 09:09 XRAY Chest (1 view) In Process Unspecified. EDMS 10:58 CT Chest For PE Angio In Process Unspecified. EDMS Administered Medications: No medications were administered Outcome: 11:30 Discharge ordered by MD. rn 11:57 Patient left the ED. sg Signatures: Dispatcher [employer] EDMS Joshua Johnson RN RN sg Sara Calhoun jr1 Boston Salcido MD MD rn Calderon, Audri, RN RN aa5 Anaid Luong, scale balancer EKG Tat1 Esther Haynes 4 Sandra Chavez [facility] Corrections: (The following items were deleted from the chart) 08:22 08:19 Presenting complaint: Patient states: pain to left side of chest radiating to aa5 left shoulder, and left scapular area that began yesterday. Pt denies cough. aa5 08: 08:19 Acuity: MATT 3 aa5 aa5
[2019-02-18 12:12] VITALS: TEMP 97.7
[2019-02-18 12:13] VITALS: BP 118/69; O2SAT 99
--- NOTE | 2019-02-18 20:21 | EKG ---
Test Date: 2019-02-18 Test Time: 08:22:29 [place] Vessel Pilot: MELVA MEASUREMENT RESULTS: Intervals: Rate: 62 [place]: 180 QRSD: 82 QT: 404 QTc: 410 [place]: P: 57 [place]: 180 QRS: 50 T: 18 INTERPRETIVE STATEMENTS: Normal sinus rhythm Normal ECG Compared to ECG 06/16/2017 17:40:10 No significant changes Electronically Signed On 02-18-19 20:18:52 CDT by Demian Younger
== END 2019-02-18 11:57 | disposition home or self-care (01) ==
LOC: ER 08:03
DX: R07.9 Chest pain, unspecified (principal); I51.7 Cardiomegaly
CPT/HCPCS: 36415; 71045; 71275; 80048; 81003; 81025; 83690; 83880; 84484; 85025; 85379; 93005; 99284; Q9967

== ENCOUNTER 2019-08-12 12:29 | Emergency (ER) | payer SELFPAY ==
--- NOTE | 2019-08-12 14:59 | EDPHYS ---
Physician Documentation [facility] Name: Joanne Knight Age: 29 yrs Sex: Female : 1990 Arrival Date: 08/12/2019 Time: 12:33 Bed 11 Private MD: ED Physician Terry Dumont HPI: 08/11 13:16 This 29 yrs old Female presents to ER via Ambulatory with complaints of Cough, jmm Congestion, Ear Pain. 13:16 The patient or guardian reports cough. Onset: The symptoms/episode began/occurred jmm gradually, 2 day(s) ago. Modifying factors: The symptoms are alleviated by nothing, cool environment, the symptoms are aggravated by nothing. Associated signs and symptoms: Pertinent positives: earache, fever, sore throat. The patient has experienced a previous episode. 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 - Social history:: Smoking status: Patient reports the use of cigarette tobacco products, denies chronic smoking, but will smoke occasionally. ROS: 13:16 Neck: Negative for injury, pain, and swelling, Cardiovascular: Negative for chest pain, jmm palpitations, and edema. 13:16 Abdomen/GI: Negative for abdominal pain, nausea, vomiting, diarrhea, and constipation, Back: Negative for injury and pain, Neuro: Negative for headache, weakness, numbness, tingling, and seizure. 13:16 Constitutional: Positive for fever. 13:16 ENT: Positive for ear pain, sinus congestion, sore throat. 13:16 Respiratory: Positive for cough. 13:16 Abdomen/GI: 13:16 All other systems are negative. Exam: 13:16 Constitutional: This is a well developed, well nourished patient who is awake, alert, jmm and in no acute distress. Head/Face: atraumatic. Eyes: EOMI, no conjunctival erythema appreciated 13:16 Neck: Trachea midline, Supple Chest/axilla: Normal chest wall appearance and motion. 13:16 Back: Normal ROM Skin: General appearance color normal MS/ Extremity: Moves all extremities, no obvious deformities appreciated, no edema noted to the lower extremities Neuro: Awake and alert, normal gait Psych: Behavior is normal, Mood is normal, Patient is cooperative and pleasant 13:16 ENT: TM's: erythema, that is moderate, on the left, Posterior pharynx: erythema, that is moderate. 13:16 Cardiovascular: Rate: normal, Rhythm: regular, Pulses: no pulse deficits are appreciated. 13:16 Respiratory: the patient does not display signs of respiratory distress, Respirations: normal, Breath sounds: are clear throughout. 13:16 Abdomen/GI: Inspection: abdomen appears normal, Bowel sounds: normal, Palpation: abdomen is soft and non-tender, in all quadrants. Vital Signs: 12:40 BP 126 / 81; Pulse 93; Resp 18 S; Temp 98.6(O); Pulse Ox 100% on R/A; Weight 94.35 kg aa5 (R); Height 5 ft. 4 in. (162.56 cm) (R); Pain 7/10; 12:40 Body Mass Index 35.70 (94.35 kg, 162.56 cm) aa5 MDM: 13:16 [facility] 14:58 Data reviewed: vital signs, nurses notes. Counseling: I had a detailed discussion with [facility] the patient and/or guardian regarding: the historical points, exam findings, and any diagnostic results supporting the discharge/admit diagnosis, lab results, the need for outpatient follow up, to return to the emergency department if symptoms worsen or persist or if there are any questions or concerns that arise at home. ED course: Patient is alert and non toxic in appearance in the ED. Patient advised to follow up with pcp and otherwise given strict return precautions. Patient understood and agrees with the plan of care. . 08/11 13:54 Order name: Flu [facility] 08/11 13:54 Order name: Strep [facility] 08/11 14:38 Order name: Group A Streptococcus Rapid Sc; Complete Time: 14:56 EDMS 08/11 14:46 Order name: Influenza Screen (A ; Complete Time: 14:56 EDMS Administered Medications: No medications were administered Disposition: 16:29 Co-signature as Attending Physician, Terry Dumont MD I agree with the assessment and antonio plan of care. Disposition: 08/12/19 14:59 Discharged to Home. Impression: Acute upper respiratory infection, unspecified, Acute pharyngitis, Acute serous otitis media. - Condition is Stable. - Discharge Instructions: Otitis Media, Adult, Pharyngitis, Upper Respiratory Infection, Adult. - Prescriptions for Augmentin 875- 125 mg Oral Tablet - take 1 tablet by ORAL route every 12 hours for 10 days; 20 tablet. - Medication Reconciliation Form, Thank You Letter, Antibiotic Education, Prescription Opioid Use, Work release form form. - Follow up: Private Physician; When: 2 - 3 days; Reason: Recheck today's complaints, Continuance of care, Re-evaluation by your physician. Signatures: Dispatcher [employer] EDTerry Rose MD MD cha Mickail, Joel, PA PA Merna Reagan, RN RN iw Joan Sainz RN RN aa5 Corrections: (The following items were deleted from the chart) 15:20 14:59 08/12/2019 14:59 Discharged to Home. Impression: Acute upper respiratory iw infection, unspecified; Acute pharyngitis; Acute serous otitis media. Condition is Stable. Forms are Medication Reconciliation Form, Thank You Letter, Antibiotic Education, Prescription Opioid Use. Follow up: Private Physician; When: 2 - 3 days; Reason: Recheck today's complaints, Continuance of care, Re-evaluation by your physician. milagros
--- NOTE | 2019-08-12 14:59 | ER ---
Nurse's Notes [facility] Name: Joanne Knight Age: 29 yrs Sex: Female : 1990 Arrival Date: 08/12/2019 Time: 12:33 Bed 11 Private MD: Diagnosis: Acute upper respiratory infection, unspecified;Acute pharyngitis;Acute serous otitis media Presentation: 08/11 12:40 Chief complaint: Patient states: cough, fever, sharmin ear pain, runny nose, and sore aa5 throat that began Thursday. Coronavirus screen: The patient has NOT traveled to a country currently being monitored by the [facility] within the last 14 days. The patient has NOT had contact with any known and/or suspected case of coronavirus. Ebola Screen: Patient negative for fever greater than or equal to 101.5 degrees Fahrenheit, and additional compatible Ebola Virus Disease symptoms. Initial Sepsis Screen: Does the patient meet any 2 criteria? No. Patient's initial sepsis screen is negative. Does the patient have a suspected source of infection? No. Patient's initial sepsis screen is negative. Risk Assessment: Do you want to hurt yourself or someone else? Patient reports no desire to harm self or others. 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 - Social history:: Smoking status: Patient reports the use of cigarette tobacco products, denies chronic smoking, but will smoke occasionally. Screenin:19 Abuse screen: Denies threats or abuse. Denies injuries from another. Nutritional iw screening: No deficits noted. Tuberculosis screening: No symptoms or risk factors identified. Fall Risk None identified. Assessment: 15:17 General: Appears in no apparent distress. Behavior is calm, cooperative. General: iw Reports feeling ill for fatigue for. Pain: Denies pain. Neuro: Level of Consciousness is awake, alert, obeys commands. Cardiovascular: Patient's skin is warm and dry. Respiratory: Airway is patent Breath sounds are clear bilaterally. Respiratory: Reports cough that is. GI: Abdomen is. Derm: Skin is intact, is healthy with good turgor. Musculoskeletal: Range of motion: intact in all extremities. Vital Signs: 12:40 BP 126 / 81; Pulse 93; Resp 18 S; Temp 98.6(O); Pulse Ox 100% on R/A; Weight 94.35 kg aa5 (R); Height 5 ft. 4 in. (162.56 cm) (R); Pain 7/10; 12:40 Body Mass Index 35.70 (94.35 kg, 162.56 cm) aa5 ED Course: 12:33 Patient arrived in ED. fj1 12:40 Arm band placed on. aa5 12:42 Triage completed. aa5 13:00 Patient has correct armband on for positive identification. iw 13:13 Yassine Reyes PA is PHCP. nicolás 13:13 Terry Dumont MD is Attending Physician. m 14:15 Flu and/or RSV swab sent to lab. Strep swab sent to lab. jp3 14:15 Strep Sent. jp3 14:15 Flu Sent. jp3 15:19 No provider procedures requiring assistance completed. Patient did not have IV access iw during this emergency room visit. Administered Medications: No medications were administered Outcome: 14:59 Discharge ordered by . [facility] 15:19 Discharged to home ambulatory. iw 15:19 Condition: good 15:19 Discharge instructions given to patient, Instructed on discharge instructions, follow up and referral plans. medication usage, Demonstrated understanding of instructions, follow-up care, medications, Prescriptions given X 1. 15:20 Patient left the ED. iw Signatures: Yassine Reyes PA PA jmm Williams, Irene RN RN iw Joan Sainz, RN RN aa5 Elieser Aggarwal jp3 Pritesh Willson fj1 Corrections: (The following items were deleted from the chart) 15:56 14:56 Joan Sainz, RN is Primary Nurse. aa5 aa5
[2019-08-12 15:28] VITALS: BP 126/81; TEMP 98.6; O2SAT 100
== END 2019-08-12 15:20 | disposition home or self-care (01) ==
LOC: ER 12:29
DX: J06.9 Acute upper respiratory infection, unspecified (principal); J02.9 Acute pharyngitis, unspecified; H65.03 Acute serous otitis media, bilateral; F17.210 Nicotine dependence, cigarettes, uncomplicated
CPT/HCPCS: 87070; 87081; 87804; 99283

== ENCOUNTER 2020-05-14 | Emergency (ER) | payer SELFPAY ==
--- NOTE | 2020-05-14 07:52 | EDPHYS ---
Physician Documentation [facility] Name: Joanne Knight Age: 30 yrs Sex: Female : 1990 Arrival Date: 05/14/2020 Time: 07:17 Bed 2 Private MD: ED Physician Boston Salcido HPI: 05/14 07:49 This 30 yrs old Female presents to ER via Ambulatory with complaints of rn Redness of Eye, Drainage From Eye. 07:49 The patient is experiencing redness, tearing, The patient sustained None. to the right rn eye, caused by an unknown mechanism. Onset: The symptoms/episode began/occurred yesterday. Duration: the symptoms are continuous. Aggravated by nothing. Alleviated by nothing. Severity of symptoms: At their worst the symptoms were mild in the emergency department the symptoms are unchanged. The patient has not experienced similar symptoms in the past. Reports right eye redness and clear drainage, began yesterday, does not wear contacts, no trauma or injury, gets tested for COVID weekly and has been negative. . 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 - Social history:: Smoking status: Patient denies any tobacco usage or history of. - Family history:: not pertinent. - Hospitalizations: : No recent hospitalization is reported. ROS: 07:49 Constitutional: Negative for fever, chills, and weight loss, Eyes: + redness and rn drainage to right eye ENT: Negative for injury, pain, and discharge. Exam: 07:49 Constitutional: This is a well developed, well nourished patient who is awake, alert, rn and in no acute distress. Head/Face: Normocephalic, atraumatic. Eyes: + redness right conjunctivae, clear drainage, no foreign body identified, no trauma, no periocular swelling Vital Signs: 07:42 BP 134 / 99; Pulse 61; Resp 17; Temp 97.6; Pulse Ox 100% ; Weight 92.08 kg; Height 5 jl7 ft. 4 in. (162.56 cm); Pain /; 07:42 Body Mass Index 34.84 (92.08 kg, 162.56 cm) jl7 MDM: 07:37 Patient medically screened. rn 07:49 Differential diagnosis: Data reviewed: vital signs, nurses notes, and as a result, I rn will discharge patient. Counseling: I had a detailed discussion with the patient and/or guardian regarding: the historical points, exam findings, and any diagnostic results supporting the discharge/admit diagnosis, the need for outpatient follow up, to return to the emergency department if symptoms worsen or persist or if there are any questions or concerns that arise at home. Special discussion: I discussed with the patient/guardian in detail that at this point there is no indication for admission to the hospital. It is understood, however, that if the symptoms persist or worsen the patient needs to return immediately for re-evaluation. Administered Medications: No medications were administered Disposition: 05/14/20 07:52 Discharged to Home. Impression: Conjunctivitis. - Condition is Stable. - Discharge Instructions: Bacterial Conjunctivitis, Viral Conjunctivitis. - Prescriptions for Vigamox 0.5 % Ophthalmic Drops - instill 1 drop by OPHTHALMIC route every 8 hours for 7 days; 5 milliliter. - Medication Reconciliation Form, Thank You Letter, Antibiotic Education, Prescription Opioid Use, Work release form form. - Follow up: Private Physician; When: As needed; Reason: Recheck today's complaints, Re-evaluation by your physician. - Problem is new. - Symptoms are unchanged. Signatures: Boston Salcido MD MD rn Leal, Jahala, RN RN jl7 Corrections: (The following items were deleted from the chart) 08:18 07:52 05/14/2020 07:52 Discharged to Home. Impression: Conjunctivitis. Condition is jl7 Stable. Forms are Medication Reconciliation Form, Thank You Letter, Antibiotic Education, Prescription Opioid Use. Follow up: Private Physician; When: As needed; Reason: Recheck today's complaints, Re-evaluation by your physician. Problem is new. Symptoms are unchanged. rn
--- NOTE | 2020-05-14 07:52 | ER ---
Nurse's Notes [facility] Name: Joanne Knight Age: 30 yrs Sex: Female : 1990 Arrival Date: 05/14/2020 Time: 07:17 Bed 2 Private MD: Diagnosis: Conjunctivitis Presentation: 05/14 07:42 Chief complaint: Patient states: Woke with right eye redness, swelling, light jl7 sensitivity, itchy. Coronavirus screen: Client denies travel out of the [place] in the last 14 days. At this time, the client does not indicate any symptoms associated with coronavirus-19. Ebola Screen: No symptoms or risks identified at this time. Initial Sepsis Screen: Does the patient meet any 2 criteria? No. Patient's initial sepsis screen is negative. Does the patient have a suspected source of infection? No. Patient's initial sepsis screen is negative. Risk Assessment: Do you want to hurt yourself or someone else? Patient reports no desire to harm self or others. Onset of symptoms was May 14, 2020. Care prior to arrival: None. 07:42 Method Of Arrival: Ambulatory 7 07:42 Acuity: MATT 4 jl7 Triage Assessment: 07:47 General: Appears in no apparent distress. uncomfortable, Behavior is calm, cooperative, jl7 appropriate for age. Pain: Complains of pain in right eye Pain currently is 4 out of 10 on a pain scale. EENT: Eyes are tearing on right eye Sclera/Cornea are reddened in right eye. Neuro: Level of Consciousness is awake, alert, obeys commands, Oriented to person, place, time, situation. Cardiovascular: Patient's skin is warm and dry. Respiratory: Airway is patent Respiratory effort is even, unlabored, Respiratory pattern is regular, symmetrical. Derm: Skin is pink, warm \T\ dry. 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 - Social history:: Smoking status: Patient denies any tobacco usage or history of. - Family history:: not pertinent. - Hospitalizations: : No recent hospitalization is reported. Screenin:00 Abuse screen: Denies threats or abuse. Denies injuries from another. Nutritional jl7 screening: No deficits noted. Tuberculosis screening: No symptoms or risk factors identified. Fall Risk None identified. Assessment: 08:00 General: See triage assessment. jl7 Vital Signs: 07:42 BP 134 / 99; Pulse 61; Resp 17; Temp 97.6; Pulse Ox 100% ; Weight 92.08 kg; Height 5 jl7 ft. 4 in. (162.56 cm); Pain 4/10; 07:42 Body Mass Index 34.84 (92.08 kg, 162.56 cm) jl7 ED Course: 07:17 Patient arrived in ED. as 07:37 Boston Salcido MD is Attending Physician. rn 07:42 Anthony Muhammad, RN is Primary Nurse. bp 07:42 Omi Dugan, RN is Primary Nurse. jl7 07:47 Triage completed. jl7 07:47 Arm band placed on right wrist. jl7 08:00 Patient has correct armband on for positive identification. Bed in low position. Call jl7 light in reach. Side rails up X 1. 08:17 No provider procedures requiring assistance completed. Patient did not have IV access jl7 during this emergency room visit. Administered Medications: No medications were administered Outcome: 07:52 Discharge ordered by . rn 08:17 Discharged to home ambulatory. jl7 08:17 Condition: stable 08:17 Discharge instructions given to patient, Instructed on discharge instructions, follow up and referral plans. medication usage, Demonstrated understanding of instructions, follow-up care, medications, Prescriptions given X 1. 08:18 Patient left the ED. jl7 Signatures: Trinidad Chavez Roman, MD MD rn Leal, Jahala, RN RN jl7 Anthony Muhammad RN RN bp
== END 2020-05-14 08:18 | disposition home or self-care (01) ==
DX: H10.9 Unspecified conjunctivitis (principal)
CPT/HCPCS: 99282